=== PATIENT | female | born 1955 | race Caucasian/White ===

== ENCOUNTER 2019-03-24 02:07 | Inpatient (IN) | payer MEDICAID ==
[~2019-03-24] VITALS: Ht 162.6 cm; Wt 47.8 kg
[2019-03-25 12:59] VITALS: BP 116/76
== END 2019-03-25 17:41 | disposition home or self-care (01) | DRG 393 ==
LOC: ED 03:57 → EDIP 04:00 → 4EST 05:31
PROVIDERS: ADMIT Family Medicine; ATTEND Family Medicine
PROC: 0W3P8ZZ Control Bleeding in Gastrointestinal Tract, Via Natural or Artificial Opening Endoscopic (ICD-10-PCS; principal; 2019-03-24)
PROC: 0DBK8ZZ Excision of Ascending Colon, Via Natural or Artificial Opening Endoscopic (ICD-10-PCS; 2019-03-24)
PROC: 0DBN8ZZ Excision of Sigmoid Colon, Via Natural or Artificial Opening Endoscopic (ICD-10-PCS; 2019-03-24)
PROC: 30233N1 Transfusion of Nonautologous Red Blood Cells into Peripheral Vein, Percutaneous Approach (ICD-10-PCS; 2019-03-24)
PROC: 0DJ08ZZ Inspection of Upper Intestinal Tract, Via Natural or Artificial Opening Endoscopic (ICD-10-PCS; 2019-03-24)
DX: K63.5 Polyp of colon (principal); K57.31 Diverticulosis of large intestine without perforation or abscess with bleeding; K63.3 Ulcer of intestine; D62 Acute posthemorrhagic anemia; D53.9 Nutritional anemia, unspecified; E87.6 Hypokalemia; F10.20 Alcohol dependence, uncomplicated; Z71.41 Alcohol abuse counseling and surveillance of alcoholic; Y90.9 Presence of alcohol in blood, level not specified; F12.10 Cannabis abuse, uncomplicated; Z71.51 Drug abuse counseling and surveillance of drug abuser; F17.200 Nicotine dependence, unspecified, uncomplicated; F51.04 Psychophysiologic insomnia; J44.9 Chronic obstructive pulmonary disease, unspecified; F32.9 Major depressive disorder, single episode, unspecified; R73.9 Hyperglycemia, unspecified
CPT/HCPCS: 36415; 96365; 96375; 99291; J7042; 36430; 80053; 80307; 83036; 83540; 83550; 83690; 83735; 84484; 85014; 85018; 85025; 85610; 86850; 86900; 86923; 88305; 93005; 99152; 99153; G0378; J2250; J3010; J3411; J3475; J3480; A4648; C9113; J1200; J7030; P9016

== ENCOUNTER 2020-02-16 10:12 | Inpatient (IN) | payer MEDICARE, MEDICAID ==
[~2020-02-16] VITALS: Ht 157.5 cm; Wt 52.2 kg
[~2020-02-16 10:12] MED LIST: ACET500T76 PO; ACID1TAB7 PO; ALBU18HF INH; TRAZ-175 PO
--- NOTE | 2020-02-16 11:12 | NUR ---
pt to room from lobby.
--- NOTE | 2020-02-16 11:30 | NUR ---
LATE ENTRY FOR 1130: BRITTANIE RILEY AT BEDSIDE FOR INITIAL ASSESSMENT, PT PRESENTS TO ED WITH C/O 10/10 GENERALIZED ABD PAIN ONSET THIS AM, NOW RADIATING TO BACK AND RIGHT SHOULDER. POC US COMPLETED AT BEDSIDE BY BRITTANIE RILEY TO ASSESS AORTA AND ABDOMEN. PT IS A&O, ANXIOUS. RESPS EVEN AND UNLABORED. EKG COMPLETED BY EDT, REVIEWED BY BRITTANIE. ALL MONITORS IN PLACE . PIV PLACED TO LEFT AC. CALL LIGHT IN REACH.
[2020-02-16] MEDS ORDERED: ONDANSETRON 2MG/ML, 2ML ONE ×2 (11:55→16:38)
[2020-02-16] MEDS ORDERED: HYDROmorphone 1 MG/ML, 1ML INJ ONE ×3 (11:55→20:25)
[2020-02-16] MEDS ORDERED: SODIUM CHLORIDE 0.9% 1,000ML IVBOLUS ONE ×2 (12:00→12:30)
[2020-02-16] MEDS ORDERED: ONDANSETRON 2MG/ML, 2ML IVPush ONE (12:00)
[2020-02-16] MEDS ORDERED: SODIUM CHLORIDE FLUSH 10ML SYR IVF ONE (12:00)
[2020-02-16] MEDS: HYDROmorphone 2 MG/ML, 1ML IVPush PRN ×4 (12:03→23:52)
[2020-02-16 12:09] LABS: INTERNATIONAL NORMALIZED RATIO 1.08 (0.93-1.1); MEAN CORPUSCULAR HEMOGLOBIN 26.9 pg (27.0-34.8); MEAN CORPUSCULAR HGB CONC 32.7 g/dL (32.4-35.8); MEAN PLATELET VOLUME 6.9 fL (7.4-10.4); PLATELET COUNT 532 x10^3/uL (130-400); PROTHROMBIN TIME 11.5 Seconds (9.6-11.5); RED BLOOD COUNT 4.55 x10^6/uL (3.82-5.3); RED CELL DISTRIBUTION WIDTH 23.1 % (9.6-15.2)
--- NOTE | 2020-02-16 12:10 | NUR ---
PT INITIALLY REFUSED XRAY, STATES PAIN INTOLERABLE AND SHE WILL NOT MOVE FOR IMAGING. PT MEDICATED PER EMAR, EDMD NOTIFIED PT REPORTS INCREASING ABD PAIN AND RT SHOULDER PAIN PRIOR TO DILAUDID. MD NOTIFIED PT REFUSING IMAGING, MD ASKED THAT XRAY BE REATTEMPTED. RADIOLOGY PAGED TO COLLECT PT.
[2020-02-16 12:13] LABS: ALANINE AMINOTRANSFERASE 19 U/L (12-78); ALBUMIN 1.5 g/dL (3.4-5.0); ANION GAP 10 mmol/L (5-15); CALCIUM 7.7 mg/dL (8.5-10.1); CHLORIDE 104 mmol/L (98-107); CREATININE 0.57 mg/dL (0.55-1.02)
[2020-02-16 12:17] LABS: ALKALINE PHOSPHATASE 259 U/L (45-117); BILIRUBIN,TOTAL 0.7 mg/dL (0.2-1.0); TOTAL PROTEIN 6.4 g/dL (6.4-8.2); TROPONIN I < 0.015 ng/mL (0.000-0.045)
[2020-02-16 12:30] LABS: MD YES
[2020-02-16 12:33] LABS: MICROSCOPIC INDICATED
--- NOTE | 2020-02-16 12:33 | NUR ---
Walked into room to meet patient, pt reporting this pain is unbareable and i cannot tolerate it. Pt reports "If i was feeling better I would be giving you hell!" Pt reports pain is everywhere and cannot point to one place. Denies gastric hx but records indicate hx of gi bleed. Pt is not hotn or pale. Pt resting in room and two doses of diludid given.
[2020-02-16 12:35] LABS: BASOS#(MANUAL) 0.07 x10^3/uL (0-0.1); BASOS% (MANUAL) 1 % (0-1); LYMPH#(MANUAL) 0.98 x10^3/uL (1-3.4); LYMPHS% (MANUAL) 14 % (22-44); MONOS#(MANUAL) 0.28 x10^3/uL (0.3-2.7); MONOS% (MANUAL) 4 % (2-9)
[2020-02-16 12:37] LABS: BAND#(MANUAL) 1.96 x10^3/uL; BANDS%(MANUAL) 28 % (0-7); SEG#(MANUAL) 3.71 x10^3/uL (1.8-6.8); SEGS% (MANUAL) 53 % (42-75)
[2020-02-16 12:38] LABS: <PLATELET ESTIMATE> INCREASED; <PLT MORPHOLOGY> NORMAL PLT MORPH; ANISOCYTOSIS 1+; HYPOCHROMIA 1+; STOMATOCYTES 1+; TARGET CELLS 1+
[2020-02-16] MEDS ORDERED: OMNIPAQUE 350 MG/ML, 100ML BOTTLE ONE (13:04)
[2020-02-16] MEDS ORDERED: METRONIDAZOLE PMX 500MG/100ML 100 ML IV ONE (13:30)
[2020-02-16] MEDS ORDERED: AMPICILLIN/SULBACTAM 3 GM in SODIUM CHLORIDE 0.9% 100 ML IV ONE (13:30)
--- NOTE | 2020-02-16 14:18 | NUR ---
Pt met sepsis@1400, Informed md BLOOD CULTURES OBTAINED AND PT WAS NOT HOTN EVER. Pt receiving approrpiate abx therapy. Pt at this time not wanting surgery. [place] sheet completed and in chart.
[2020-02-16] MEDS: D5%-0.45NACL+KCL 20MEQ 1,000 ML IV SCH ×2 (14:28→22:03)
[2020-02-16] MEDS: METRONIDAZOLE PMX 500MG/100ML 100 ML IV SCH ×2 (14:30→23:42)
[2020-02-16] MEDS ORDERED: hydrALAzine 20 MG/ML, 1ML IVPush PRN (14:30)
[2020-02-16] MEDS: ENOXAPARIN 40 MG/0.4 ML SQ SCH (14:30)
[2020-02-16] MEDS ORDERED: BACLOFEN 10 MG TABLET PO PRN (14:30)
[2020-02-16] MEDS ORDERED: GUAIFENESIN/DM 200-20MG, 10ML UDC PO PRN (14:30)
[2020-02-16] MEDS ORDERED: LABETALOL 5MG/ML, 20ML IVPush PRN (14:30)
[2020-02-16] MEDS ORDERED: TRAZODONE 50MG TABLET PO PRN (14:30)
[2020-02-16] MEDS ORDERED: ONDANSETRON ODT 4 MG PO PRN (14:30)
[2020-02-16] MEDS ORDERED: MELATONIN 5 MG TABLET PO PRN (14:30)
[2020-02-16] MEDS ORDERED: ACETAMINOPHEN 325 MG TABLET PO PRN ×2 (14:30→18:00)
[2020-02-16] MEDS ORDERED: BUTALB/APAP/CAFFEINE 50MG/325MG/40MG PO PRN ×2 (14:30)
[2020-02-16] MEDS ORDERED: ALBUTEROL HFA 90 MCG/SPRAY INH PRN (15:00)
[2020-02-16] MEDS ORDERED: LIDOCAINE 1%, 10ML ONE (15:23)
[2020-02-16] MEDS ORDERED: NICOTINE 21 MG/24 HR PATCH.TD24 ONE (15:38)
[2020-02-16] MEDS ORDERED: CIPROFLOXACIN/PMX 400MG/200ML 200 ML ONE (15:38)
[2020-02-16] MEDS: NICOTINE 21 MG/24 HR PATCH.TD24 TD SCH (15:55)
--- NOTE | 2020-02-16 16:22 | NUR ---
Pt is requesting surgery now, Dr. Guadarrama to bedside and letting her know. Pt reports that she is aggreable and is anxious. Pt ambulated to restroom again and calm after going to restroom.
--- NOTE | 2020-02-16 16:34 | NUR ---
Task RN: Assisted patient to bathroom. Patient ambulatory with a steady gait.
[2020-02-16] MEDS ORDERED: FENTANYL PF 100 MCG/2ML ONE ×2 (16:38→19:29)
[2020-02-16] MEDS ORDERED: CEFAZOLIN 1,000 MG ONE (16:38)
[2020-02-16] MEDS ORDERED: PROPOFOL 10 MG/ML, 20ML ONE (16:38)
[2020-02-16] MEDS ORDERED: DEXAMETHASONE 4 MG/ML, 1ML ONE (16:38)
[2020-02-16] MEDS ORDERED: SUCCINYLCHOLINE 20 MG/ML, 10ML ONE (16:38)
[2020-02-16] MEDS ORDERED: GLYCOPYRROLATE 0.2MG/1ML, 5ML ONE (16:38)
[2020-02-16] MEDS ORDERED: NEOSTIGMINE 1 MG/ML, 10ML ONE (16:38)
[2020-02-16] MEDS ORDERED: MIDAZOLAM 1 MG/ML, 2ML ONE (16:38)
[2020-02-16] MEDS ORDERED: ROCURONIUM 10MG/ML,5ML ONE (16:38)
[2020-02-16] MEDS ORDERED: PHENYLEPHRINE 10 MG/ML ONE (17:08)
[2020-02-16] MEDS ORDERED: SUGAMMADEX 200 MG/2 ML IVPush ONE (17:08)
[2020-02-16] MEDS ORDERED: PROMETHAZINE 25 MG/ML, 1ML IVPush PRN (18:00)
[2020-02-16] MEDS ORDERED: FENTANYL PF 100 MCG/2ML IV PRN (18:00)
[2020-02-16] MEDS ORDERED: MEPERIDINE/PF 25MG/0.5ML IVPush PRN (18:00)
[2020-02-16] MEDS ORDERED: HYDROmorphone 1 MG/ML, 1ML INJ IVPush PRN (18:00)
[2020-02-16] MEDS: TRAZODONE 100MG TABLET PO SCH (21:00)
[2020-02-16 21:10] VITALS: BP 96/69
[2020-02-16] MEDS ORDERED: METRONIDAZOLE PMX 500MG/100ML 100 ML ONE (22:01)
[2020-02-17 02:00] VITALS: BP 96/60
[2020-02-17] MEDS: D5%-0.45NACL+KCL 20MEQ 1,000 ML IV SCH ×2 (03:43→14:22)
[2020-02-17] MEDS: CIPROFLOXACIN/PMX 400MG/200ML 200 ML IV SCH ×2 (03:43→15:44)
[2020-02-17 05:10] LABS: ALBUMIN 0.9 g/dL (3.4-5.0); ANION GAP 4 mmol/L (5-15); CALCIUM 7.2 mg/dL (8.5-10.1); CHLORIDE 111 mmol/L (98-107); CREATININE 0.56 mg/dL (0.55-1.02)
[2020-02-17 05:14] LABS: ALANINE AMINOTRANSFERASE 12 U/L (12-78); ALKALINE PHOSPHATASE 136 U/L (45-117); BILIRUBIN,TOTAL 0.3 mg/dL (0.2-1.0); TOTAL PROTEIN 4.1 g/dL (6.4-8.2)
[2020-02-17 05:25] LABS: MEAN CORPUSCULAR HEMOGLOBIN 27.1 pg (27.0-34.8); MEAN CORPUSCULAR HGB CONC 31.7 g/dL (32.4-35.8); MEAN PLATELET VOLUME 6.8 fL (7.4-10.4); PLATELET COUNT 382 x10^3/uL (130-400); RED BLOOD COUNT 3.36 x10^6/uL (3.82-5.3); RED CELL DISTRIBUTION WIDTH 23.1 % (9.6-15.2)
[2020-02-17 06:16] LABS: MD YES
[2020-02-17 06:18] LABS: ANISOCYTOSIS 1+; BAND#(MANUAL) 6.32 x10^3/uL; BANDS%(MANUAL) 40 % (0-7); LYMPH#(MANUAL) 1.11 x10^3/uL (1-3.4); LYMPHS% (MANUAL) 7 % (22-44); METAMYELOCYTES# (MANUAL) 0.79 x10^3/uL (0-0); METAMYELOCYTES% (MANUAL) 5 % (0-1); MONOS#(MANUAL) 0.47 x10^3/uL (0.3-2.7); MONOS% (MANUAL) 3 % (2-9); SEG#(MANUAL) 7.11 x10^3/uL (1.8-6.8); SEGS% (MANUAL) 45 % (42-75)
[2020-02-17 06:19] LABS: <PLATELET ESTIMATE> ADEQUATE; <PLT MORPHOLOGY> NORMAL PLT MORPH; HYPOCHROMIA 1+; TARGET CELLS 1+
[2020-02-17 06:26] VITALS: BP 91/60
[2020-02-17] MEDS: SENNA/DOCUSATE TABLET PO SCH (09:00)
[2020-02-17 09:01] VITALS: BP 98/67
[2020-02-17] MEDS: HYDROmorphone 2 MG/ML, 1ML IVPush PRN ×3 (09:10→20:28)
[2020-02-17] MEDS: METRONIDAZOLE PMX 500MG/100ML 100 ML IV SCH ×2 (09:10→17:02)
[2020-02-17] MEDS: ENOXAPARIN 40 MG/0.4 ML SQ SCH (14:22)
[2020-02-17] MEDS: NICOTINE 21 MG/24 HR PATCH.TD24 TD SCH (14:23)
[2020-02-17] MEDS ORDERED: LORazepam 2 MG/ML, 1ML IV PRN ×3 (15:00)
[2020-02-17 16:06] VITALS: BP 100/60
[2020-02-17 20:19] VITALS: BP 112/75
[2020-02-17] MEDS: TRAZODONE 100MG TABLET PO SCH (20:20)
[2020-02-18 00:14] VITALS: BP 97/63
[2020-02-18] MEDS: METRONIDAZOLE PMX 500MG/100ML 100 ML IV SCH ×4 (00:45→23:47)
[2020-02-18] MEDS: D5%-0.45NACL+KCL 20MEQ 1,000 ML IV SCH ×2 (01:27→16:14)
[2020-02-18] MEDS: CIPROFLOXACIN/PMX 400MG/200ML 200 ML IV SCH (03:55)
[2020-02-18 06:09] LABS: MEAN CORPUSCULAR HEMOGLOBIN 26.3 pg (27.0-34.8); MEAN CORPUSCULAR HGB CONC 30.9 g/dL (32.4-35.8); MEAN PLATELET VOLUME 6.9 fL (7.4-10.4); PLATELET COUNT 357 x10^3/uL (130-400); RED BLOOD COUNT 3.08 x10^6/uL (3.82-5.3); RED CELL DISTRIBUTION WIDTH 24.1 % (9.6-15.2)
[2020-02-18 06:14] LABS: ALBUMIN 0.9 g/dL (3.4-5.0); ANION GAP 6 mmol/L (5-15); CALCIUM 7.4 mg/dL (8.5-10.1); CHLORIDE 105 mmol/L (98-107); CREATININE 0.41 mg/dL (0.55-1.02)
[2020-02-18 06:37] LABS: MD YES
[2020-02-18 06:38] LABS: BAND#(MANUAL) 5.64 x10^3/uL; BANDS%(MANUAL) 27 % (0-7); LYMPH#(MANUAL) 1.05 x10^3/uL (1-3.4); LYMPHS% (MANUAL) 5 % (22-44); METAMYELOCYTES# (MANUAL) 0.21 x10^3/uL (0-0); METAMYELOCYTES% (MANUAL) 1 % (0-1); MONOS#(MANUAL) 0.63 x10^3/uL (0.3-2.7); MONOS% (MANUAL) 3 % (2-9); SEG#(MANUAL) 13.38 x10^3/uL (1.8-6.8); SEGS% (MANUAL) 64 % (42-75)
[2020-02-18 06:40] LABS: <PLATELET ESTIMATE> ADEQUATE; <PLT MORPHOLOGY> NORMAL PLT MORPH
[2020-02-18 06:41] LABS: ANISOCYTOSIS 1+; HYPOCHROMIA 1+
[2020-02-18 07:21] VITALS: BP 115/76
[2020-02-18] MEDS ORDERED: POTASSIUM PHOSPHATE 44 MEQ in SODIUM CHLORIDE 0.9% 500 ML IV ONE (07:45)
[2020-02-18] MEDS: SENNA/DOCUSATE TABLET PO SCH (09:00)
[2020-02-18] MEDS: HYDROmorphone 2 MG/ML, 1ML IVPush PRN ×2 (09:50→17:23)
[2020-02-18 14:53] VITALS: BP 110/74
[2020-02-18] MEDS: ENOXAPARIN 40 MG/0.4 ML SQ SCH (16:13)
[2020-02-18] MEDS: NICOTINE 21 MG/24 HR PATCH.TD24 TD SCH (16:14)
[2020-02-18] MEDS: CEFTRIAXONE PMX 1GM/50ML 50 ML IV SCH (17:23)
[2020-02-18 19:42] VITALS: BP 105/68
[2020-02-18] MEDS: TRAZODONE 100MG TABLET PO SCH (21:00)
[2020-02-18] MEDS: LORazepam 2 MG/ML, 1ML IV PRN (23:02)
[2020-02-19 02:28] VITALS: BP 114/78
[2020-02-19] MEDS: D5%-0.45NACL+KCL 20MEQ 1,000 ML IV SCH ×2 (04:52→23:39)
[2020-02-19] MEDS: CEFTRIAXONE PMX 1GM/50ML 50 ML IV SCH ×2 (04:52→17:24)
[2020-02-19 06:17] LABS: MEAN CORPUSCULAR HEMOGLOBIN 26.8 pg (27.0-34.8); MEAN CORPUSCULAR HGB CONC 31.8 g/dL (32.4-35.8); PLATELET COUNT 337 x10^3/uL (130-400); RED BLOOD COUNT 3.46 x10^6/uL (3.82-5.3); RED CELL DISTRIBUTION WIDTH 23.7 % (9.6-15.2)
[2020-02-19 06:21] LABS: ALBUMIN 1.1 g/dL (3.4-5.0); ANION GAP 5 mmol/L (5-15); CALCIUM 7.4 mg/dL (8.5-10.1); CHLORIDE 106 mmol/L (98-107); CREATININE 0.39 mg/dL (0.55-1.02)
[2020-02-19 06:43] LABS: MD YES
[2020-02-19 06:45] LABS: BAND#(MANUAL) 0.39 x10^3/uL; BANDS%(MANUAL) 2 % (0-7); LYMPH#(MANUAL) 1.93 x10^3/uL (1-3.4); LYMPHS% (MANUAL) 10 % (22-44); MONOS#(MANUAL) 0.77 x10^3/uL (0.3-2.7); MONOS% (MANUAL) 4 % (2-9); MYELOCYTES# (MANUAL) 0.39 x10^3/uL (0-0); MYELOCYTES% (MANUAL) 2 % (0-0); SEG#(MANUAL) 15.83 x10^3/uL (1.8-6.8); SEGS% (MANUAL) 82 % (42-75)
[2020-02-19 06:46] LABS: <PLATELET ESTIMATE> ADEQUATE; <PLT MORPHOLOGY> NORMAL PLT MORPH; ANISOCYTOSIS 1+; HYPOCHROMIA 1+
[2020-02-19 07:26] VITALS: BP 119/79
[2020-02-19] MEDS: METRONIDAZOLE PMX 500MG/100ML 100 ML IV SCH ×3 (08:18→23:39)
[2020-02-19] MEDS: HYDROmorphone 2 MG/ML, 1ML IVPush PRN ×2 (08:19→17:23)
[2020-02-19] MEDS: SENNA/DOCUSATE TABLET PO SCH (08:19)
[2020-02-19] MEDS ORDERED: POTASSIUM PHOSPHATE 44 MEQ in SODIUM CHLORIDE 0.9% 500 ML IV ONE (08:30)
[2020-02-19] MEDS: LORazepam 2 MG/ML, 1ML IV PRN ×2 (13:25→15:34)
[2020-02-19] MEDS: ENOXAPARIN 40 MG/0.4 ML SQ SCH (15:34)
[2020-02-19] MEDS: NICOTINE 21 MG/24 HR PATCH.TD24 TD SCH (15:34)
[2020-02-19 15:43] VITALS: BP 109/76
[2020-02-19 19:04] VITALS: BP 103/70
[2020-02-19] MEDS: TRAZODONE 100MG TABLET PO SCH (20:12)
[2020-02-20] MEDS: LORazepam 2 MG/ML, 1ML IV PRN (01:16)
[2020-02-20 01:37] VITALS: BP 105/71
[2020-02-20] MEDS: HYDROmorphone 2 MG/ML, 1ML IVPush PRN ×4 (03:21→23:56)
[2020-02-20] MEDS: CEFTRIAXONE PMX 1GM/50ML 50 ML IV SCH ×2 (05:22→16:34)
[2020-02-20 06:33] LABS: MEAN CORPUSCULAR HEMOGLOBIN 26.5 pg (27.0-34.8); MEAN CORPUSCULAR HGB CONC 31.7 g/dL (32.4-35.8); MEAN PLATELET VOLUME 6.7 fL (7.4-10.4); PLATELET COUNT 326 x10^3/uL (130-400); RED BLOOD COUNT 3.55 x10^6/uL (3.82-5.3)
[2020-02-20 06:45] LABS: ALBUMIN 0.9 g/dL (3.4-5.0); ANION GAP 5 mmol/L (5-15); CALCIUM 7.2 mg/dL (8.5-10.1); CHLORIDE 108 mmol/L (98-107)
[2020-02-20 07:02] LABS: MD YES
[2020-02-20 07:04] LABS: BAND#(MANUAL) 0.59 x10^3/uL; BANDS%(MANUAL) 4 % (0-7); LYMPH#(MANUAL) 1.78 x10^3/uL (1-3.4); LYMPHS% (MANUAL) 12 % (22-44); MONOS#(MANUAL) 0.15 x10^3/uL (0.3-2.7); MONOS% (MANUAL) 1 % (2-9); MYELOCYTES# (MANUAL) 0.15 x10^3/uL (0-0); MYELOCYTES% (MANUAL) 1 % (0-0); SEG#(MANUAL) 12.14 x10^3/uL (1.8-6.8); SEGS% (MANUAL) 82 % (42-75)
[2020-02-20 07:05] LABS: ANISOCYTOSIS 1+; HYPOCHROMIA 1+
[2020-02-20 07:06] LABS: <PLATELET ESTIMATE> ADEQUATE; <PLT MORPHOLOGY> NORMAL PLT MORPH
[2020-02-20 07:24] VITALS: BP 101/69
[2020-02-20] MEDS: SENNA/DOCUSATE TABLET PO SCH (09:00)
[2020-02-20] MEDS: METRONIDAZOLE PMX 500MG/100ML 100 ML IV SCH ×3 (09:45→23:54)
[2020-02-20] MEDS: D5%-0.45NACL+KCL 20MEQ 1,000 ML IV SCH ×2 (12:32→23:54)
[2020-02-20 13:11] VITALS: BP 110/69
[2020-02-20 14:01] VITALS: BP 111/77
[2020-02-20] MEDS: ENOXAPARIN 40 MG/0.4 ML SQ SCH (15:01)
[2020-02-20] MEDS: NICOTINE 21 MG/24 HR PATCH.TD24 TD SCH (15:04)
[2020-02-20 20:51] VITALS: BP 107/68
[2020-02-20] MEDS: TRAZODONE 100MG TABLET PO SCH (21:00)
[2020-02-21] MEDS: CEFTRIAXONE PMX 1GM/50ML 50 ML IV SCH ×2 (04:38→17:00)
[2020-02-21] MEDS: HYDROmorphone 2 MG/ML, 1ML IVPush PRN ×4 (04:39→22:30)
[2020-02-21 04:41] VITALS: BP 102/69
[2020-02-21 06:07] LABS: MEAN CORPUSCULAR HGB CONC 32.5 g/dL (32.4-35.8); PLATELET COUNT 344 x10^3/uL (130-400); RED CELL DISTRIBUTION WIDTH 23.8 % (9.6-15.2)
[2020-02-21 06:14] LABS: ALBUMIN 0.9 g/dL (3.4-5.0); ANION GAP 5 mmol/L (5-15); CALCIUM 7.1 mg/dL (8.5-10.1); CHLORIDE 106 mmol/L (98-107)
[2020-02-21 06:15] LABS: CREATININE 0.35 mg/dL (0.55-1.02)
[2020-02-21 06:43] LABS: MD YES
[2020-02-21 06:48] LABS: BAND#(MANUAL) 0.31 x10^3/uL; BANDS%(MANUAL) 2 % (0-7); LYMPH#(MANUAL) 1.69 x10^3/uL (1-3.4); LYMPHS% (MANUAL) 11 % (22-44); METAMYELOCYTES# (MANUAL) 0.15 x10^3/uL (0-0); METAMYELOCYTES% (MANUAL) 1 % (0-1); MONOS#(MANUAL) 0.77 x10^3/uL (0.3-2.7); MONOS% (MANUAL) 5 % (2-9); MYELOCYTES# (MANUAL) 0.46 x10^3/uL (0-0); MYELOCYTES% (MANUAL) 3 % (0-0); SEG#(MANUAL) 12.01 x10^3/uL (1.8-6.8); SEGS% (MANUAL) 78 % (42-75)
[2020-02-21 06:49] LABS: ANISOCYTOSIS 1+
[2020-02-21 06:50] LABS: <PLATELET ESTIMATE> ADEQUATE; <PLT MORPHOLOGY> NORMAL PLT MORPH; POLYCHROMASIA 1+
[2020-02-21 07:31] VITALS: BP 92/61
[2020-02-21] MEDS ORDERED: POTASSIUM PHOSPHATE 22 MEQ in SODIUM CHLORIDE 0.9% 500 ML IV ONE (08:30)
[2020-02-21] MEDS: METRONIDAZOLE PMX 500MG/100ML 100 ML IV SCH ×2 (08:39→16:56)
[2020-02-21] MEDS: SENNA/DOCUSATE TABLET PO SCH (08:39)
[2020-02-21] MEDS: ENOXAPARIN 40 MG/0.4 ML SQ SCH (13:13)
[2020-02-21] MEDS: NICOTINE 21 MG/24 HR PATCH.TD24 TD SCH (13:14)
[2020-02-21] MEDS: GABAPENTIN 300 MG CAPSULE PO PRN (13:14)
[2020-02-21] MEDS: D5%-0.45NACL+KCL 20MEQ 1,000 ML IV SCH (13:14)
[2020-02-21] MEDS ORDERED: PVN PER PHARMACY MC SCH (14:00)
[2020-02-21 14:12] VITALS: BP 113/75
[2020-02-21] MEDS: FILTER, DISP 1.2 MICRON FOR TPN/PVN IV PRN (16:50)
[2020-02-21] MEDS ORDERED: AMINO ACID 10% IV SCH (17:00)
[2020-02-21] MEDS ORDERED: FAT EMUL IV SCH (17:00)
[2020-02-21] MEDS ORDERED: DEXTROSE 70% IV SCH (17:00)
[2020-02-21] MEDS ORDERED: [UNRECOGNIZED DRUG - OTHER] IV SCH (17:00)
[2020-02-21] MEDS ORDERED: SMOF TPN IV SCH (17:00)
[2020-02-21 19:54] VITALS: BP 116/78
[2020-02-21] MEDS: TRAZODONE 100MG TABLET PO SCH (20:34)
[2020-02-22] MEDS ORDERED: DEXTROSE 50%, 50ML SYRINGE IVPush PRN
[2020-02-22 00:59] VITALS: BP 112/73
[2020-02-22] MEDS: METRONIDAZOLE PMX 500MG/100ML 100 ML IV SCH ×3 (00:59→18:03)
[2020-02-22] MEDS ORDERED: DEXTROSE 10% 500 ML IV PRN (02:00)
[2020-02-22] MEDS: HYDROmorphone 2 MG/ML, 1ML IVPush PRN ×2 (03:09→07:40)
[2020-02-22] MEDS: INSULIN REGULAR LOW DOSE Q6H X 48HRS SQ-INSULIN SCH ×4 (03:10→22:00)
[2020-02-22] MEDS: CEFTRIAXONE PMX 1GM/50ML 50 ML IV SCH ×2 (04:30→16:43)
[2020-02-22 05:51] LABS: MEAN CORPUSCULAR HEMOGLOBIN 26.7 pg (27.0-34.8); MEAN CORPUSCULAR HGB CONC 31.7 g/dL (32.4-35.8); MEAN PLATELET VOLUME 7.2 fL (7.4-10.4); PLATELET COUNT 374 x10^3/uL (130-400); RED BLOOD COUNT 3.14 x10^6/uL (3.82-5.3); RED CELL DISTRIBUTION WIDTH 24.1 % (9.6-15.2)
[2020-02-22 05:55] LABS: ANION GAP 4 mmol/L (5-15); CALCIUM 7.6 mg/dL (8.5-10.1); CHLORIDE 111 mmol/L (98-107)
[2020-02-22 06:03] LABS: ALANINE AMINOTRANSFERASE 10 U/L (12-78); ALKALINE PHOSPHATASE 109 U/L (45-117); BILIRUBIN,TOTAL 0.2 mg/dL (0.2-1.0); CREATININE 0.35 mg/dL (0.55-1.02); PREALBUMIN 3.8 mg/dL (20.0-40.0); TOTAL PROTEIN 4.7 g/dL (6.4-8.2)
[2020-02-22 06:14] LABS: MD YES
[2020-02-22 06:16] LABS: <PLATELET ESTIMATE> ADEQUATE; <PLT MORPHOLOGY> NORMAL PLT MORPH; ANISOCYTOSIS 1+; LYMPH#(MANUAL) 0.84 x10^3/uL (1-3.4); LYMPHS% (MANUAL) 6 % (22-44); METAMYELOCYTES# (MANUAL) 0.14 x10^3/uL (0-0); METAMYELOCYTES% (MANUAL) 1 % (0-1); MONOS% (MANUAL) 5 % (2-9); POLYCHROMASIA 1+; SEG#(MANUAL) 12.32 x10^3/uL (1.8-6.8); SEGS% (MANUAL) 88 % (42-75)
[2020-02-22 07:08] VITALS: BP 125/84
[2020-02-22] MEDS: SENNA/DOCUSATE TABLET PO SCH (09:45)
[2020-02-22] MEDS: HYDROcodone/APAP 5/325 TABLET PO PRN ×3 (11:25→20:41)
[2020-02-22 13:23] VITALS: BP 105/72
[2020-02-22] MEDS: ENOXAPARIN 40 MG/0.4 ML SQ SCH (16:08)
[2020-02-22] MEDS: NICOTINE 21 MG/24 HR PATCH.TD24 TD SCH (16:09)
[2020-02-22] MEDS: FILTER, DISP 1.2 MICRON FOR TPN/PVN IV PRN (16:43)
[2020-02-22] MEDS ORDERED: AMINO ACID 10% IV SCH (17:00)
[2020-02-22] MEDS ORDERED: SMOF TPN IV SCH (17:00)
[2020-02-22] MEDS ORDERED: FAT EMUL IV SCH (17:00)
[2020-02-22] MEDS ORDERED: DEXTROSE 70% IV SCH (17:00)
[2020-02-22] MEDS ORDERED: [UNRECOGNIZED DRUG - OTHER] IV SCH (17:00)
[2020-02-22 18:45] VITALS: BP 103/62
[2020-02-22] MEDS: TRAZODONE 100MG TABLET PO SCH (21:00)
[2020-02-23 01:06] VITALS: BP 114/71
[2020-02-23] MEDS: METRONIDAZOLE PMX 500MG/100ML 100 ML IV SCH ×3 (02:24→18:14)
[2020-02-23] MEDS: HYDROcodone/APAP 5/325 TABLET PO PRN ×3 (02:24→17:34)
[2020-02-23] MEDS: INSULIN REGULAR LOW DOSE Q6H X 48HRS SQ-INSULIN SCH ×4 (02:26→21:00)
[2020-02-23] MEDS: CEFTRIAXONE PMX 1GM/50ML 50 ML IV SCH ×2 (05:14→17:27)
[2020-02-23 07:56] VITALS: BP 132/85
[2020-02-23 08:54] LABS: MEAN CORPUSCULAR HEMOGLOBIN 26.4 pg (27.0-34.8); MEAN CORPUSCULAR HGB CONC 31.3 g/dL (32.4-35.8); MEAN PLATELET VOLUME 7.1 fL (7.4-10.4); PLATELET COUNT 504 x10^3/uL (130-400); RED BLOOD COUNT 3.63 x10^6/uL (3.82-5.3)
[2020-02-23] MEDS: GABAPENTIN 300 MG CAPSULE PO PRN ×2 (08:57→17:34)
[2020-02-23] MEDS: SENNA/DOCUSATE TABLET PO SCH (08:58)
[2020-02-23 09:00] LABS: ANION GAP 7 mmol/L (5-15); CALCIUM 8.3 mg/dL (8.5-10.1); CHLORIDE 108 mmol/L (98-107); CREATININE 0.33 mg/dL (0.55-1.02)
[2020-02-23 09:28] LABS: BASOPHILS # (AUTO) 0.09 x10^3/uL (0-0.1); BASOPHILS % (AUTO) 1 % (0-1); EOSINOPHILS # (AUTO) 0.03 x10^3/uL (0-0.4); EOSINOPHILS % (AUTO) 0 % (1-7); LYMPHOCYTES # (AUTO) 0.98 x10^3/uL (1-3.4); LYMPHOCYTES % (AUTO) 5 % (22-44); MD SCAN; MONOCYTES # (AUTO) 0.52 x10^3/uL (0.2-0.8); MONOCYTES % (AUTO) 3 % (2-9); NEUTROPHILS # (AUTO) 16.92 x10^3/uL (1.8-6.8); NEUTROPHILS % (AUTO) 91 % (42-75)
[2020-02-23] MEDS: HYDROmorphone 2 MG/ML, 1ML IVPush PRN ×2 (12:42→21:18)
[2020-02-23 13:48] VITALS: BP 114/75
[2020-02-23] MEDS: NICOTINE 21 MG/24 HR PATCH.TD24 TD SCH (15:05)
[2020-02-23] MEDS: ENOXAPARIN 40 MG/0.4 ML SQ SCH (15:05)
[2020-02-23] MEDS ORDERED: DEXTROSE 70% IV SCH (17:00)
[2020-02-23] MEDS ORDERED: AMINO ACID 10% IV SCH (17:00)
[2020-02-23] MEDS ORDERED: SMOF TPN IV SCH (17:00)
[2020-02-23] MEDS ORDERED: FAT EMUL IV SCH (17:00)
[2020-02-23] MEDS ORDERED: [UNRECOGNIZED DRUG - OTHER] IV SCH (17:00)
[2020-02-23] MEDS: FILTER, DISP 1.2 MICRON FOR TPN/PVN IV PRN (17:19)
[2020-02-23 18:26] VITALS: BP 106/68
[2020-02-23] MEDS: TRAZODONE 100MG TABLET PO SCH (21:00)
[2020-02-23] MEDS: VENLAFAXINE XR 37.5MG CAP.ER.24H PO SCH (21:17)
[2020-02-24 00:39] VITALS: BP 131/87
[2020-02-24] MEDS: HYDROmorphone 2 MG/ML, 1ML IVPush PRN ×5 (01:01→22:38)
[2020-02-24] MEDS: METRONIDAZOLE PMX 500MG/100ML 100 ML IV SCH ×3 (02:14→17:26)
[2020-02-24 04:41] LABS: ALBUMIN 1.3 g/dL (3.4-5.0); ANION GAP 4 mmol/L (5-15); CHLORIDE 102 mmol/L (98-107); MEAN CORPUSCULAR HEMOGLOBIN 26.3 pg (27.0-34.8); MEAN PLATELET VOLUME 7.2 fL (7.4-10.4); PLATELET COUNT 584 x10^3/uL (130-400); RED BLOOD COUNT 3.54 x10^6/uL (3.82-5.3); RED CELL DISTRIBUTION WIDTH 24.9 % (9.6-15.2)
[2020-02-24 04:46] LABS: ALANINE AMINOTRANSFERASE 11 U/L (12-78); ALKALINE PHOSPHATASE 113 U/L (45-117); BILIRUBIN,TOTAL 0.5 mg/dL (0.2-1.0); CREATININE 0.36 mg/dL (0.55-1.02); TOTAL PROTEIN 5.7 g/dL (6.4-8.2)
[2020-02-24] MEDS: CEFTRIAXONE PMX 1GM/50ML 50 ML IV SCH ×2 (05:05→16:43)
[2020-02-24] MEDS: ONDANSETRON 2MG/ML, 2ML IVPush PRN ×2 (05:11→15:22)
[2020-02-24 05:14] LABS: BASOPHILS % (AUTO) 0 % (0-1); EOSINOPHILS # (AUTO) 0.03 x10^3/uL (0-0.4); EOSINOPHILS % (AUTO) 0 % (1-7); LYMPHOCYTES # (AUTO) 1.25 x10^3/uL (1-3.4); LYMPHOCYTES % (AUTO) 5 % (22-44); MD SCAN; MONOCYTES # (AUTO) 0.77 x10^3/uL (0.2-0.8); MONOCYTES % (AUTO) 3 % (2-9); NEUTROPHILS # (AUTO) 20.98 x10^3/uL (1.8-6.8); NEUTROPHILS % (AUTO) 91 % (42-75)
[2020-02-24] MEDS: INSULIN REGULAR LOW DOSE QDAY SQ-INSULIN SCH (06:00)
[2020-02-24 07:52] VITALS: BP 127/84
[2020-02-24] MEDS: SENNA/DOCUSATE TABLET PO SCH (08:40)
[2020-02-24] MEDS ORDERED: OMNIPAQUE 350 MG/ML, 100ML BOTTLE ONE (13:01)
[2020-02-24] MEDS: ENOXAPARIN 40 MG/0.4 ML SQ SCH (13:38)
[2020-02-24 13:56] VITALS: BP 126/82
[2020-02-24] MEDS: NICOTINE 14MG/24 HR PATCH.TD24 TD SCH (14:41)
[2020-02-24] MEDS: FILTER, DISP 1.2 MICRON FOR TPN/PVN IV PRN (16:59)
[2020-02-24] MEDS ORDERED: DEXTROSE 70% IV SCH (17:00)
[2020-02-24] MEDS ORDERED: AMINO ACID 10% IV SCH (17:00)
[2020-02-24] MEDS ORDERED: FAT EMUL IV SCH (17:00)
[2020-02-24] MEDS ORDERED: [UNRECOGNIZED DRUG - OTHER] IV SCH (17:00)
[2020-02-24] MEDS ORDERED: SMOF TPN IV SCH (17:00)
[2020-02-24 18:48] VITALS: BP 125/75
[2020-02-24] MEDS: TRAZODONE 100MG TABLET PO SCH (21:00)
[2020-02-24] MEDS: VENLAFAXINE XR 37.5MG CAP.ER.24H PO SCH (21:38)
[2020-02-24] MEDS ORDERED: GABAPENTIN 100 MG CAPSULE ONE (22:32)
[2020-02-24] MEDS: GABAPENTIN 300 MG CAPSULE PO PRN (22:36)
[2020-02-25 01:01] VITALS: BP 130/83
[2020-02-25] MEDS: METRONIDAZOLE PMX 500MG/100ML 100 ML IV SCH ×2 (02:18→10:21)
[2020-02-25] MEDS: HYDROmorphone 2 MG/ML, 1ML IVPush PRN ×3 (02:18→11:41)
[2020-02-25] MEDS: CEFTRIAXONE PMX 1GM/50ML 50 ML IV SCH (05:23)
[2020-02-25 05:38] LABS: MEAN CORPUSCULAR HGB CONC 31.9 g/dL (32.4-35.8); MEAN PLATELET VOLUME 7.7 fL (7.4-10.4); PLATELET COUNT 546 x10^3/uL (130-400); RED BLOOD COUNT 3.44 x10^6/uL (3.82-5.3); RED CELL DISTRIBUTION WIDTH 24.1 % (9.6-15.2)
[2020-02-25] MEDS: INSULIN REGULAR LOW DOSE QDAY SQ-INSULIN SCH (06:02)
[2020-02-25 06:06] LABS: ALANINE AMINOTRANSFERASE 9 U/L (12-78); ALBUMIN 1.4 g/dL (3.4-5.0); ALKALINE PHOSPHATASE 114 U/L (45-117); BILIRUBIN,TOTAL 0.2 mg/dL (0.2-1.0); CREATININE 0.31 mg/dL (0.55-1.02); TOTAL PROTEIN 5.7 g/dL (6.4-8.2)
[2020-02-25 06:15] LABS: MD YES
[2020-02-25 06:16] LABS: ANISOCYTOSIS 1+; BAND#(MANUAL) 0.45 x10^3/uL; BANDS%(MANUAL) 2 % (0-7); LYMPH#(MANUAL) 0.67 x10^3/uL (1-3.4); LYMPHS% (MANUAL) 3 % (22-44); MONOS#(MANUAL) 0.67 x10^3/uL (0.3-2.7); MONOS% (MANUAL) 3 % (2-9); SEG#(MANUAL) 20.52 x10^3/uL (1.8-6.8); SEGS% (MANUAL) 92 % (42-75)
[2020-02-25 06:17] LABS: <PLATELET ESTIMATE> INCREASED; <PLT MORPHOLOGY> NORMAL PLT MORPH; HYPOCHROMIA 1+; POLYCHROMASIA 1+
[2020-02-25 07:33] VITALS: BP 130/84
[2020-02-25 09:02] LABS: ANION GAP 6 mmol/L (5-15); CHLORIDE 103 mmol/L (98-107)
[2020-02-25] MEDS: SENNA/DOCUSATE TABLET PO SCH (10:21)
[2020-02-25] MEDS: FLUCONAZOLE 400 MG/200 ML 200 ML IV SCH (13:22)
[2020-02-25 14:08] VITALS: BP 118/77
[2020-02-25] MEDS: ENOXAPARIN 40 MG/0.4 ML SQ SCH (15:29)
[2020-02-25] MEDS: HYDROcodone/APAP 5/325 TABLET PO PRN ×2 (15:30→23:14)
[2020-02-25] MEDS: NICOTINE 14MG/24 HR PATCH.TD24 TD SCH (15:31)
[2020-02-25] MEDS: PIPERACILLIN/TAZO/PMX 3.375GM 50 ML IV SCH ×3 (16:10→23:11)
[2020-02-25] MEDS ORDERED: SMOF TPN IV SCH (17:00)
[2020-02-25] MEDS ORDERED: FAT EMUL IV SCH (17:00)
[2020-02-25] MEDS ORDERED: AMINO ACID 10% IV SCH (17:00)
[2020-02-25] MEDS ORDERED: [UNRECOGNIZED DRUG - OTHER] IV SCH (17:00)
[2020-02-25] MEDS ORDERED: DEXTROSE 70% IV SCH (17:00)
[2020-02-25 18:55] VITALS: BP 146/84
[2020-02-25] MEDS: TRAZODONE 100MG TABLET PO SCH (21:00)
[2020-02-25] MEDS: VENLAFAXINE XR 37.5MG CAP.ER.24H PO SCH (23:12)
[2020-02-25] MEDS: GABAPENTIN 300 MG CAPSULE PO PRN (23:13)
[2020-02-26 00:35] VITALS: BP 116/72
[2020-02-26] MEDS: PIPERACILLIN/TAZO/PMX 3.375GM 50 ML IV SCH ×4 (05:05→23:15)
[2020-02-26] MEDS: HYDROcodone/APAP 5/325 TABLET PO PRN ×3 (05:06→23:17)
[2020-02-26] MEDS: INSULIN REGULAR LOW DOSE QDAY SQ-INSULIN SCH (06:00)
[2020-02-26 07:10] LABS: ANION GAP 6 mmol/L (5-15); CALCIUM 8.3 mg/dL (8.5-10.1); CHLORIDE 110 mmol/L (98-107); CREATININE 0.25 mg/dL (0.55-1.02)
[2020-02-26 07:15] LABS: MEAN CORPUSCULAR HEMOGLOBIN 27.3 pg (27.0-34.8); MEAN CORPUSCULAR HGB CONC 32.2 g/dL (32.4-35.8); MEAN PLATELET VOLUME 7.9 fL (7.4-10.4); PLATELET COUNT 502 x10^3/uL (130-400); RED BLOOD COUNT 2.79 x10^6/uL (3.82-5.3); RED CELL DISTRIBUTION WIDTH 24.5 % (9.6-15.2)
[2020-02-26 07:31] LABS: BASOPHILS # (AUTO) 0.03 x10^3/uL (0-0.1); BASOPHILS % (AUTO) 0 % (0-1); EOSINOPHILS # (AUTO) 0.21 x10^3/uL (0-0.4); EOSINOPHILS % (AUTO) 1 % (1-7); LYMPHOCYTES # (AUTO) 1.34 x10^3/uL (1-3.4); LYMPHOCYTES % (AUTO) 7 % (22-44); MD SCAN; MONOCYTES # (AUTO) 0.98 x10^3/uL (0.2-0.8); MONOCYTES % (AUTO) 5 % (2-9); NEUTROPHILS # (AUTO) 17.16 x10^3/uL (1.8-6.8); NEUTROPHILS % (AUTO) 87 % (42-75)
[2020-02-26 07:39] VITALS: BP 114/75
[2020-02-26] MEDS: SENNA/DOCUSATE TABLET PO SCH (08:38)
[2020-02-26] MEDS: FLUCONAZOLE 400 MG/200 ML 200 ML IV SCH (11:41)
[2020-02-26 12:58] VITALS: BP 133/78
[2020-02-26 13:02] VITALS: BP 128/73
[2020-02-26] MEDS: ENOXAPARIN 40 MG/0.4 ML SQ SCH (14:44)
[2020-02-26] MEDS: NICOTINE 14MG/24 HR PATCH.TD24 TD SCH (14:44)
[2020-02-26] MEDS: FILTER, DISP 1.2 MICRON FOR TPN/PVN IV PRN (16:56)
[2020-02-26] MEDS ORDERED: AMINO ACID 10% 750 ML, DEXTROSE 70% 350 ML, FAT EMUL/SMOF TPN 175 ML, STERILE WATER 1,0... IV SCH (17:00)
[2020-02-26 19:35] VITALS: BP 118/68
[2020-02-26] MEDS: TRAZODONE 100MG TABLET PO SCH (21:00)
[2020-02-26] MEDS: VENLAFAXINE XR 37.5MG CAP.ER.24H PO SCH (23:16)
[2020-02-26] MEDS: GABAPENTIN 300 MG CAPSULE PO PRN (23:16)
[2020-02-27 00:38] VITALS: BP 127/79
[2020-02-27 05:36] LABS: MEAN CORPUSCULAR HEMOGLOBIN 27.5 pg (27.0-34.8); MEAN CORPUSCULAR HGB CONC 31.8 g/dL (32.4-35.8); MEAN PLATELET VOLUME 7.4 fL (7.4-10.4); PLATELET COUNT 578 x10^3/uL (130-400); RED BLOOD COUNT 2.92 x10^6/uL (3.82-5.3); RED CELL DISTRIBUTION WIDTH 24.7 % (9.6-15.2)
[2020-02-27] MEDS: HYDROcodone/APAP 5/325 TABLET PO PRN ×4 (05:36→23:02)
[2020-02-27] MEDS: PIPERACILLIN/TAZO/PMX 3.375GM 50 ML IV SCH ×4 (05:36→23:04)
[2020-02-27 05:40] LABS: ANION GAP 4 mmol/L (5-15); CALCIUM 8.5 mg/dL (8.5-10.1); CHLORIDE 109 mmol/L (98-107); CREATININE 0.37 mg/dL (0.55-1.02)
[2020-02-27] MEDS: INSULIN REGULAR LOW DOSE QDAY SQ-INSULIN SCH (06:00)
[2020-02-27 06:41] LABS: MD YES
[2020-02-27 06:43] LABS: ANISOCYTOSIS 1+; EOS#(MANUAL) 0.21 x10^3/uL (0.0-0.4); EOS% (MANUAL) 1 % (1-7); LYMPH#(MANUAL) 2.77 x10^3/uL (1-3.4); LYMPHS% (MANUAL) 13 % (22-44); MONOS#(MANUAL) 1.28 x10^3/uL (0.3-2.7); MONOS% (MANUAL) 6 % (2-9); SEG#(MANUAL) 17.04 x10^3/uL (1.8-6.8); SEGS% (MANUAL) 80 % (42-75)
[2020-02-27 06:44] LABS: <PLATELET ESTIMATE> INCREASED; <PLT MORPHOLOGY> NORMAL PLT MORPH; HYPOCHROMIA 1+; POLYCHROMASIA 1+; TARGET CELLS 1+
[2020-02-27 06:45] LABS: MICROCYTOSIS 1+
[2020-02-27 07:20] VITALS: BP 130/79
[2020-02-27] MEDS: SENNA/DOCUSATE TABLET PO SCH (09:18)
[2020-02-27] MEDS: FLUCONAZOLE 400 MG/200 ML 200 ML IV SCH (11:35)
[2020-02-27 13:19] VITALS: BP 147/86
[2020-02-27] MEDS: ALBUTEROL HFA 90 MCG/SPRAY INH SCH ×2 (14:06→21:11)
[2020-02-27] MEDS: ENOXAPARIN 40 MG/0.4 ML SQ SCH (15:05)
[2020-02-27] MEDS: NICOTINE 14MG/24 HR PATCH.TD24 TD SCH (15:05)
[2020-02-27] MEDS: FILTER, DISP 1.2 MICRON FOR TPN/PVN IV PRN (16:29)
[2020-02-27] MEDS ORDERED: AMINO ACID 10% 750 ML, DEXTROSE 70% 350 ML, FAT EMUL/SMOF TPN 175 ML, STERILE WATER 1,0... IV SCH (17:00)
[2020-02-27] MEDS: TRAZODONE 100MG TABLET PO SCH (21:00)
[2020-02-27] MEDS: VENLAFAXINE XR 37.5MG CAP.ER.24H PO SCH (21:11)
[2020-02-27 21:59] VITALS: BP 149/78
[2020-02-27 22:05] VITALS: BP 149/79
[2020-02-28 01:05] VITALS: BP 159/91
[2020-02-28] MEDS: PIPERACILLIN/TAZO/PMX 3.375GM 50 ML IV SCH ×3 (05:03→17:44)
[2020-02-28] MEDS: HYDROcodone/APAP 5/325 TABLET PO PRN ×4 (05:03→22:09)
[2020-02-28 05:43] LABS: CHLORIDE 107 mmol/L (98-107)
[2020-02-28 05:54] LABS: MEAN CORPUSCULAR HGB CONC 31.1 g/dL (32.4-35.8); MEAN PLATELET VOLUME 7.3 fL (7.4-10.4); PLATELET COUNT 633 x10^3/uL (130-400); RED BLOOD COUNT 3.05 x10^6/uL (3.82-5.3)
[2020-02-28 05:56] LABS: ANION GAP 5 mmol/L (5-15); CALCIUM 8.9 mg/dL (8.5-10.1); CREATININE 0.33 mg/dL (0.55-1.02); PREALBUMIN 14.5 mg/dL (20.0-40.0); TRIGLYCERIDES 469 mg/dL (50-200)
[2020-02-28] MEDS: INSULIN REGULAR LOW DOSE QDAY SQ-INSULIN SCH (06:00)
[2020-02-28 06:10] LABS: BASOPHILS # (AUTO) 0.01 x10^3/uL (0-0.1); BASOPHILS % (AUTO) 0 % (0-1); EOSINOPHILS % (AUTO) 0 % (1-7); LYMPHOCYTES # (AUTO) 1.68 x10^3/uL (1-3.4); LYMPHOCYTES % (AUTO) 9 % (22-44); MD SCAN; MONOCYTES % (AUTO) 6 % (2-9); NEUTROPHILS # (AUTO) 15.48 x10^3/uL (1.8-6.8); NEUTROPHILS % (AUTO) 85 % (42-75)
[2020-02-28 07:12] VITALS: BP 156/96
[2020-02-28] MEDS: SENNA/DOCUSATE TABLET PO SCH (09:00)
[2020-02-28] MEDS: GABAPENTIN 300 MG CAPSULE PO PRN ×2 (09:30→17:54)
[2020-02-28] MEDS: ALBUTEROL HFA 90 MCG/SPRAY INH SCH ×2 (09:32→22:13)
[2020-02-28] MEDS: FLUCONAZOLE 400 MG/200 ML 200 ML IV SCH (09:34)
[2020-02-28 13:24] VITALS: BP 131/81
[2020-02-28] MEDS: ENOXAPARIN 40 MG/0.4 ML SQ SCH (14:44)
[2020-02-28] MEDS: NICOTINE 14MG/24 HR PATCH.TD24 TD SCH (14:44)
[2020-02-28] MEDS ORDERED: SMOF TPN IV SCH (17:00)
[2020-02-28] MEDS ORDERED: [UNRECOGNIZED DRUG - OTHER] IV SCH (17:00)
[2020-02-28] MEDS ORDERED: FAT EMUL IV SCH (17:00)
[2020-02-28] MEDS ORDERED: DEXTROSE 70% IV SCH (17:00)
[2020-02-28] MEDS ORDERED: AMINO ACID 10% IV SCH (17:00)
[2020-02-28 19:28] VITALS: BP 136/81
[2020-02-28] MEDS: VENLAFAXINE XR 37.5MG CAP.ER.24H PO SCH (22:09)
[2020-02-29] MEDS: PIPERACILLIN/TAZO/PMX 3.375GM 50 ML IV SCH ×2 (00:29→06:19)
[2020-02-29 00:39] VITALS: BP 114/71
[2020-02-29] MEDS: HYDROcodone/APAP 5/325 TABLET PO PRN ×3 (05:18→15:16)
[2020-02-29 05:42] LABS: ALBUMIN 1.6 g/dL (3.4-5.0); ANION GAP 8 mmol/L (5-15); CALCIUM 8.5 mg/dL (8.5-10.1); CHLORIDE 102 mmol/L (98-107); MEAN CORPUSCULAR HEMOGLOBIN 27.1 pg (27.0-34.8); MEAN CORPUSCULAR HGB CONC 31.9 g/dL (32.4-35.8); MEAN PLATELET VOLUME 7.7 fL (7.4-10.4); PLATELET COUNT 661 x10^3/uL (130-400); RED BLOOD COUNT 3.18 x10^6/uL (3.82-5.3); RED CELL DISTRIBUTION WIDTH 24.4 % (9.6-15.2)
[2020-02-29 05:45] LABS: ALANINE AMINOTRANSFERASE 11 U/L (12-78); ALKALINE PHOSPHATASE 171 U/L (45-117); BILIRUBIN,TOTAL 0.4 mg/dL (0.2-1.0); CREATININE 0.38 mg/dL (0.55-1.02); TOTAL PROTEIN 6.3 g/dL (6.4-8.2)
[2020-02-29 06:01] LABS: BASOPHILS # (AUTO) 0.01 x10^3/uL (0-0.1); BASOPHILS % (AUTO) 0 % (0-1); EOSINOPHILS # (AUTO) 0.22 x10^3/uL (0-0.4); EOSINOPHILS % (AUTO) 1 % (1-7); LYMPHOCYTES # (AUTO) 2.58 x10^3/uL (1-3.4); LYMPHOCYTES % (AUTO) 15 % (22-44); MD SCAN; MONOCYTES # (AUTO) 1.06 x10^3/uL (0.2-0.8); MONOCYTES % (AUTO) 6 % (2-9); NEUTROPHILS # (AUTO) 13.02 x10^3/uL (1.8-6.8); NEUTROPHILS % (AUTO) 77 % (42-75)
[2020-02-29 08:11] VITALS: BP 136/85
[2020-02-29] MEDS ORDERED: POLYETHYLENE GLYCOL 17 GM PACKET PO SCH (09:00)
[2020-02-29] MEDS ORDERED: ERTAPENEM 1 GM in SODIUM CHLORIDE 0.9% 50 ML IV SCH (09:00)
[2020-02-29] MEDS: ALBUTEROL HFA 90 MCG/SPRAY INH SCH (09:34)
[2020-02-29] MEDS: SENNA/DOCUSATE TABLET PO SCH (09:34)
[2020-02-29] MEDS: GABAPENTIN 300 MG CAPSULE PO PRN ×2 (09:42→15:16)
[2020-02-29] MEDS ORDERED: ERTA1VIA4 IV (10:42)
[2020-02-29] MEDS ORDERED: HYDR-3237 PO (10:42)
[2020-02-29 13:56] VITALS: BP 117/72
[2020-02-29] MEDS: ENOXAPARIN 40 MG/0.4 ML SQ SCH (14:30)
[2020-02-29] MEDS: NICOTINE 14MG/24 HR PATCH.TD24 TD SCH (15:16)
== END 2020-02-29 15:40 | disposition home health service (06) | DRG 853 ==
LOC: ED 13:23 → EDIP 14:01 → 4EST 21:15 → 4NE 02-18 13:14 → DCLOUNGE 02-29 15:25
PROVIDERS: ADMIT Family Medicine; ATTEND Internal Medicine
PROC: 0D1M0Z4 Bypass Descending Colon to Cutaneous, Open Approach (ICD-10-PCS; 2020-02-16)
PROC: 0DTN0ZZ Resection of Sigmoid Colon, Open Approach (ICD-10-PCS; 2020-02-16)
PROC: 0T9B70Z Drainage of Bladder with Drainage Device, Via Natural or Artificial Opening (ICD-10-PCS; 2020-02-16)
PROC: 0W9G0ZZ Drainage of Peritoneal Cavity, Open Approach (ICD-10-PCS; 2020-02-16)
PROC: 0DTJ0ZZ Resection of Appendix, Open Approach (ICD-10-PCS; principal; 2020-02-16 17:00)
PROC: 3E0336Z Introduction of Nutritional Substance into Peripheral Vein, Percutaneous Approach (ICD-10-PCS; 2020-02-26)
PROC: 02HV33Z Insertion of Infusion Device into Superior Vena Cava, Percutaneous Approach (ICD-10-PCS; 2020-02-29)
PROC: B5181ZA Fluoroscopy of Superior Vena Cava using Low Osmolar Contrast, Guidance (ICD-10-PCS; 2020-02-29)
PROC: B548ZZA Ultrasonography of Superior Vena Cava, Guidance (ICD-10-PCS; 2020-02-29)
DX: A41.4 Sepsis due to anaerobes (principal); K65.0 Generalized (acute) peritonitis; E43 Unspecified severe protein-calorie malnutrition; K65.1 Peritoneal abscess; K57.20 Diverticulitis of large intestine with perforation and abscess without bleeding; J98.11 Atelectasis; K56.600 Partial intestinal obstruction, unspecified as to cause; F10.239 Alcohol dependence with withdrawal, unspecified; J90 Pleural effusion, not elsewhere classified; D63.8 Anemia in other chronic diseases classified elsewhere; E83.39 Other disorders of phosphorus metabolism; E86.0 Dehydration; E87.6 Hypokalemia; F17.210 Nicotine dependence, cigarettes, uncomplicated; F32.9 Major depressive disorder, single episode, unspecified; J44.9 Chronic obstructive pulmonary disease, unspecified; N73.9 Female pelvic inflammatory disease, unspecified; G47.00 Insomnia, unspecified; D72.829 Elevated white blood cell count, unspecified; R74.8 Abnormal levels of other serum enzymes; Z93.3 Colostomy status; K37 Unspecified appendicitis; Y90.9 Presence of alcohol in blood, level not specified; D47.3 Essential (hemorrhagic) thrombocythemia
CPT/HCPCS: 36415; 36573; 74022; 74177; 80048; 80053; 80069; 81001; 82962; 83605; 83690; 83735; 84100; 84134; 84145; 84478; 84484; 85014; 85018; 85025; 85610; 85651; 87040; 87070; 87075; 87076; 87077; 87086; 87147; 87205; 88302; 88304; 88307; 93005; 96361; 96374; 99291; G0378; J0295; J0610; J0690; J0696; J0744; J1100; J1170; J1335; J1450; J1644; J1650; J1815; J2250; J2405; J2543; J2704; J2710; J3010; J3411; J3475; J3480; Q9967; C1751; J0330; J1720; J2060; J2370; J3420; J3490; J7030; J7040

== ENCOUNTER → 2020-03-10 | Outpatient (CLI) | payer MEDICARE, MEDICAID ==
[~2020-03-10] MED LIST changes: +ERTA1VIA4 IV; +HYDR-3237 PO; +OMNIPAQUE 350 MG/ML, 100ML BOTTLE ONE
== END | disposition home or self-care (01) ==
LOC: RAD 14:32
PROVIDERS: ATTEND Internal Medicine Infectious Disease
DX: N73.5 Female pelvic peritonitis, unspecified (principal); K56.600 Partial intestinal obstruction, unspecified as to cause; J90 Pleural effusion, not elsewhere classified
CPT/HCPCS: 74177; Q9967

== ENCOUNTER → 2020-03-28 | Outpatient (CLI) | payer MEDICARE, MEDICAID | END | disposition home or self-care (01) | LOC: RAD 12:33 | PROVIDERS: ATTEND Internal Medicine Infectious Disease | DX: K63.9 Disease of intestine, unspecified (principal); R14.0 Abdominal distension (gaseous) | CPT/HCPCS: 74177; Q9967 ==

== ENCOUNTER → 2020-04-15 | Outpatient (CLI) | payer MEDICARE, MEDICAID ==
[~2020-04-15] MED LIST changes: +ERTAPENEM 1 GM ONE
== END | disposition home or self-care (01) ==
LOC: RAD 13:29
PROVIDERS: ATTEND Internal Medicine Infectious Disease
DX: K57.21 Diverticulitis of large intestine with perforation and abscess with bleeding (principal); D25.9 Leiomyoma of uterus, unspecified
CPT/HCPCS: 74177; Q9967

== ENCOUNTER 2020-04-29 09:00 | Outpatient (CLI) | payer MEDICARE, MEDICAID ==
[~2020-04-29 09:00] MED LIST changes: -ERTAPENEM 1 GM ONE; -OMNIPAQUE 350 MG/ML, 100ML BOTTLE ONE
== END 2020-04-29 23:59 | disposition home or self-care (01) ==
LOC: WOUND 09:00
PROVIDERS: ATTEND Family Medicine
DX: T81.31XA Disruption of external operation (surgical) wound, not elsewhere classified, initial encounter (principal); K57.13 Diverticulitis of small intestine without perforation or abscess with bleeding; J44.9 Chronic obstructive pulmonary disease, unspecified; D25.9 Leiomyoma of uterus, unspecified; F32.9 Major depressive disorder, single episode, unspecified; F17.210 Nicotine dependence, cigarettes, uncomplicated; Y83.8 Other surgical procedures as the cause of abnormal reaction of the patient, or of later complication, without mention of misadventure at the time of the procedure; Y92.238 Other place in hospital as the place of occurrence of the external cause
CPT/HCPCS: 97597; G0463

== ENCOUNTER 2020-05-06 10:48 | Outpatient (CLI) | payer MEDICARE, MEDICAID | END 2020-05-06 23:59 | disposition home or self-care (01) | LOC: WOUND 10:48 | PROVIDERS: ATTEND Family Medicine | DX: T81.31XD Disruption of external operation (surgical) wound, not elsewhere classified, subsequent encounter (principal); K57.13 Diverticulitis of small intestine without perforation or abscess with bleeding; J44.9 Chronic obstructive pulmonary disease, unspecified; D25.9 Leiomyoma of uterus, unspecified; F32.9 Major depressive disorder, single episode, unspecified; F17.210 Nicotine dependence, cigarettes, uncomplicated; Y83.8 Other surgical procedures as the cause of abnormal reaction of the patient, or of later complication, without mention of misadventure at the time of the procedure | CPT/HCPCS: 97597 ==

== ENCOUNTER → 2020-05-13 | Outpatient (CLI) | payer MEDICARE, MEDICAID | END | disposition home or self-care (01) | LOC: WOUND 09:53 | PROVIDERS: ATTEND Family Medicine | DX: T81.31XD Disruption of external operation (surgical) wound, not elsewhere classified, subsequent encounter (principal); K57.13 Diverticulitis of small intestine without perforation or abscess with bleeding; J44.9 Chronic obstructive pulmonary disease, unspecified; D25.9 Leiomyoma of uterus, unspecified; F32.9 Major depressive disorder, single episode, unspecified; F17.210 Nicotine dependence, cigarettes, uncomplicated; Y83.8 Other surgical procedures as the cause of abnormal reaction of the patient, or of later complication, without mention of misadventure at the time of the procedure | CPT/HCPCS: 97597 ==

== ENCOUNTER → 2020-05-17 | Outpatient (CLI) | payer MEDICARE, MEDICAID ==
[~2020-05-17] MED LIST changes: +OMNIPAQUE 350 MG/ML, 100ML BOTTLE ONE
== END | disposition home or self-care (01) ==
LOC: CFH 10:05
PROVIDERS: ATTEND Internal Medicine Infectious Disease
DX: K57.30 Diverticulosis of large intestine without perforation or abscess without bleeding (principal); N85.8 Other specified noninflammatory disorders of uterus; R93.89 Abnormal findings on diagnostic imaging of other specified body structures; K65.1 Peritoneal abscess; J98.4 Other disorders of lung
CPT/HCPCS: 74177; Q9967

== ENCOUNTER → 2020-05-20 | Outpatient (CLI) | payer MEDICARE, MEDICAID ==
[~2020-05-20] MED LIST changes: -OMNIPAQUE 350 MG/ML, 100ML BOTTLE ONE
== END | disposition home or self-care (01) ==
LOC: WOUND 10:32
PROVIDERS: ATTEND Family Medicine
DX: T81.31XD Disruption of external operation (surgical) wound, not elsewhere classified, subsequent encounter (principal); K57.13 Diverticulitis of small intestine without perforation or abscess with bleeding; J44.9 Chronic obstructive pulmonary disease, unspecified; F32.9 Major depressive disorder, single episode, unspecified; F17.210 Nicotine dependence, cigarettes, uncomplicated; Z93.3 Colostomy status; Y83.8 Other surgical procedures as the cause of abnormal reaction of the patient, or of later complication, without mention of misadventure at the time of the procedure
CPT/HCPCS: 97597

== ENCOUNTER 2020-05-27 09:57 | Outpatient (CLI) | payer MEDICARE, MEDICAID | END 2020-05-27 23:59 | disposition home or self-care (01) | LOC: WOUND 09:57 | PROVIDERS: ATTEND Family Medicine | DX: T81.31XD Disruption of external operation (surgical) wound, not elsewhere classified, subsequent encounter (principal); K57.13 Diverticulitis of small intestine without perforation or abscess with bleeding; J44.9 Chronic obstructive pulmonary disease, unspecified; F32.9 Major depressive disorder, single episode, unspecified; F17.210 Nicotine dependence, cigarettes, uncomplicated; Z93.3 Colostomy status; Y83.8 Other surgical procedures as the cause of abnormal reaction of the patient, or of later complication, without mention of misadventure at the time of the procedure | CPT/HCPCS: 97597 ==

== ENCOUNTER → 2020-06-03 | Outpatient (CLI) | payer MEDICARE, MEDICAID | END | disposition home or self-care (01) | LOC: WOUND 09:55 | PROVIDERS: ATTEND Family Medicine | DX: T81.31XD Disruption of external operation (surgical) wound, not elsewhere classified, subsequent encounter (principal); K57.13 Diverticulitis of small intestine without perforation or abscess with bleeding; J44.9 Chronic obstructive pulmonary disease, unspecified; F32.9 Major depressive disorder, single episode, unspecified; F17.210 Nicotine dependence, cigarettes, uncomplicated; Z93.3 Colostomy status; Y83.8 Other surgical procedures as the cause of abnormal reaction of the patient, or of later complication, without mention of misadventure at the time of the procedure | CPT/HCPCS: 97597 ==

== ENCOUNTER → 2020-06-10 | Outpatient (CLI) | payer MEDICARE, MEDICAID | END | disposition home or self-care (01) | LOC: WOUND 10:26 | PROVIDERS: ATTEND Family Medicine | DX: T81.31XD Disruption of external operation (surgical) wound, not elsewhere classified, subsequent encounter (principal); K57.13 Diverticulitis of small intestine without perforation or abscess with bleeding; J44.9 Chronic obstructive pulmonary disease, unspecified; F32.9 Major depressive disorder, single episode, unspecified; F17.210 Nicotine dependence, cigarettes, uncomplicated; Z93.3 Colostomy status; Y83.8 Other surgical procedures as the cause of abnormal reaction of the patient, or of later complication, without mention of misadventure at the time of the procedure | CPT/HCPCS: G0463 ==

== ENCOUNTER → 2020-06-24 | Outpatient (CLI) | payer MEDICARE, MEDICAID | END | disposition home or self-care (01) | LOC: WOUND 10:04 | PROVIDERS: ATTEND Internal Medicine | DX: T81.31XD Disruption of external operation (surgical) wound, not elsewhere classified, subsequent encounter (principal); K57.13 Diverticulitis of small intestine without perforation or abscess with bleeding; J44.9 Chronic obstructive pulmonary disease, unspecified; F32.9 Major depressive disorder, single episode, unspecified; F17.210 Nicotine dependence, cigarettes, uncomplicated; Z93.3 Colostomy status; Y83.8 Other surgical procedures as the cause of abnormal reaction of the patient, or of later complication, without mention of misadventure at the time of the procedure | CPT/HCPCS: 97597 ==

== ENCOUNTER → 2020-06-29 | Outpatient (CLI) | payer MEDICARE, MEDICAID ==
[~2020-06-29] MED LIST changes: +OMNIPAQUE 350 MG/ML, 100ML BOTTLE ONE
== END | disposition home or self-care (01) ==
LOC: CFH 13:41
PROVIDERS: ATTEND Internal Medicine Infectious Disease
DX: K57.30 Diverticulosis of large intestine without perforation or abscess without bleeding (principal); D25.9 Leiomyoma of uterus, unspecified; K65.1 Peritoneal abscess; J84.10 Pulmonary fibrosis, unspecified; N85.2 Hypertrophy of uterus
CPT/HCPCS: 74177; Q9967

== ENCOUNTER 2020-07-18 09:55 | Outpatient (CLI) | payer MEDICARE, MEDICAID ==
[~2020-07-18 09:55] MED LIST changes: -OMNIPAQUE 350 MG/ML, 100ML BOTTLE ONE
== END 2020-07-18 23:59 | disposition home or self-care (01) ==
LOC: WOUND 09:55
PROVIDERS: ATTEND Internal Medicine
DX: T81.31XD Disruption of external operation (surgical) wound, not elsewhere classified, subsequent encounter (principal); K57.13 Diverticulitis of small intestine without perforation or abscess with bleeding; J44.9 Chronic obstructive pulmonary disease, unspecified; F32.9 Major depressive disorder, single episode, unspecified; F17.210 Nicotine dependence, cigarettes, uncomplicated; Z93.3 Colostomy status; Y83.8 Other surgical procedures as the cause of abnormal reaction of the patient, or of later complication, without mention of misadventure at the time of the procedure
CPT/HCPCS: 97597

== ENCOUNTER → 2020-08-01 | Outpatient (CLI) | payer MEDICARE, MEDICAID | END | disposition home or self-care (01) | LOC: WOUND 10:05 | PROVIDERS: ATTEND Internal Medicine | DX: T81.31XD Disruption of external operation (surgical) wound, not elsewhere classified, subsequent encounter (principal); K57.13 Diverticulitis of small intestine without perforation or abscess with bleeding; J44.9 Chronic obstructive pulmonary disease, unspecified; F32.9 Major depressive disorder, single episode, unspecified; F17.210 Nicotine dependence, cigarettes, uncomplicated; Z93.3 Colostomy status; Y83.8 Other surgical procedures as the cause of abnormal reaction of the patient, or of later complication, without mention of misadventure at the time of the procedure | CPT/HCPCS: 97597 ==

== ENCOUNTER → 2020-08-18 | Outpatient (CLI) | payer MEDICARE, MEDICAID ==
[~2020-08-18] MED LIST changes: +OMNIPAQUE 350 MG/ML, 100ML BOTTLE ONE
== END | disposition home or self-care (01) ==
LOC: CFH 13:30
PROVIDERS: ATTEND Nurse Practitioner
DX: D25.9 Leiomyoma of uterus, unspecified (principal); N85.2 Hypertrophy of uterus; K65.1 Peritoneal abscess
CPT/HCPCS: 74177; Q9967

== ENCOUNTER → 2020-08-22 | Outpatient (CLI) | payer MEDICARE, MEDICAID ==
[~2020-08-22] MED LIST changes: -OMNIPAQUE 350 MG/ML, 100ML BOTTLE ONE
== END | disposition home or self-care (01) ==
LOC: WOUND 11:10
PROVIDERS: ATTEND Internal Medicine
DX: T81.31XD Disruption of external operation (surgical) wound, not elsewhere classified, subsequent encounter (principal); K57.13 Diverticulitis of small intestine without perforation or abscess with bleeding; J44.9 Chronic obstructive pulmonary disease, unspecified; F32.9 Major depressive disorder, single episode, unspecified; F17.210 Nicotine dependence, cigarettes, uncomplicated; Z93.3 Colostomy status; Y83.8 Other surgical procedures as the cause of abnormal reaction of the patient, or of later complication, without mention of misadventure at the time of the procedure
CPT/HCPCS: G0463

== ENCOUNTER → 2020-10-26 | Outpatient (CLI) | payer MEDICARE, MEDICAID ==
[~2020-10-26] MED LIST changes: +OMNIPAQUE 350 MG/ML, 100ML BOTTLE ONE
== END | disposition home or self-care (01) ==
LOC: CFH 14:08
PROVIDERS: ATTEND Internal Medicine Infectious Disease
DX: K57.30 Diverticulosis of large intestine without perforation or abscess without bleeding (principal); D25.9 Leiomyoma of uterus, unspecified; K65.1 Peritoneal abscess; J84.10 Pulmonary fibrosis, unspecified; J98.4 Other disorders of lung; M51.36 Other intervertebral disc degeneration, lumbar region
CPT/HCPCS: 74177; Q9967

== ENCOUNTER → 2020-11-29 | Outpatient (CLI) | payer MEDICARE, MEDICAID ==
[~2020-11-29] MED LIST changes: -OMNIPAQUE 350 MG/ML, 100ML BOTTLE ONE
[2020-11-29 14:14] LABS: BASOPHILS % (AUTO) 1 % (0-1); EOSINOPHILS % (AUTO) 1 % (1-7); LYMPHOCYTES % (AUTO) 24 % (22-44); MEAN CORPUSCULAR HEMOGLOBIN 30.7 pg (27.0-34.8); MEAN CORPUSCULAR HGB CONC 33.8 g/dL (32.4-35.8); MEAN PLATELET VOLUME 6.5 fL (7.4-10.4); MONOCYTES % (AUTO) 5 % (2-9); NEUTROPHILS % (AUTO) 70 % (42-75); PLATELET COUNT 313 x10^3/uL (130-400); RED BLOOD COUNT 4.38 x10^6/uL (3.82-5.3); RED CELL DISTRIBUTION WIDTH 15.3 % (9.6-15.2)
[2020-11-29 14:15] LABS: MD NO
[2020-11-29 14:17] LABS: HCT (SEDRATE) 39.7 % (34.6-47.8)
[2020-11-29 14:23] LABS: ALANINE AMINOTRANSFERASE 29 U/L (12-78); ANION GAP 7 mmol/L (5-15); C-REACTIVE PROTEIN, QUANT 0.19 mg/dL (0.02-0.49); CALCIUM 8.3 mg/dL (8.5-10.1); CHLORIDE 108 mmol/L (98-107); CREATININE 0.57 mg/dL (0.55-1.02)
[2020-11-29 14:25] LABS: ALKALINE PHOSPHATASE 153 U/L (45-117); BILIRUBIN,TOTAL 0.2 mg/dL (0.2-1.0); TOTAL PROTEIN 6.8 g/dL (6.4-8.2)
== END | disposition home or self-care (01) ==
LOC: LAB 13:53
PROVIDERS: ATTEND Internal Medicine Infectious Disease
DX: K65.1 Peritoneal abscess (principal); K63.1 Perforation of intestine (nontraumatic); R79.82 Elevated C-reactive protein (CRP); R70.0 Elevated erythrocyte sedimentation rate
CPT/HCPCS: 36415; 80053; 85025; 85651; 86140

== ENCOUNTER → 2020-12-26 | Outpatient (CLI) | payer MEDICARE, MEDICAID ==
[2020-12-26 12:34] LABS: ALANINE AMINOTRANSFERASE 21 U/L (12-78); ALBUMIN 3.1 g/dL (3.4-5.0); ANION GAP 8 mmol/L (5-15); C-REACTIVE PROTEIN, QUANT 0.18 mg/dL (0.02-0.49); CALCIUM 8.2 mg/dL (8.5-10.1); CHLORIDE 105 mmol/L (98-107); CREATININE 0.58 mg/dL (0.55-1.02)
[2020-12-26 12:37] LABS: ALKALINE PHOSPHATASE 137 U/L (45-117); BILIRUBIN,TOTAL 0.1 mg/dL (0.2-1.0); TOTAL PROTEIN 6.8 g/dL (6.4-8.2)
[2020-12-26 12:57] LABS: BASOPHILS % (AUTO) 1 % (0-1); EOSINOPHILS % (AUTO) 0 % (1-7); LYMPHOCYTES % (AUTO) 24 % (22-44); MEAN CORPUSCULAR HEMOGLOBIN 31.5 pg (27.0-34.8); MEAN CORPUSCULAR HGB CONC 34.4 g/dL (32.4-35.8); MEAN PLATELET VOLUME 7.1 fL (7.4-10.4); MONOCYTES % (AUTO) 6 % (2-9); NEUTROPHILS % (AUTO) 69 % (42-75); PLATELET COUNT 303 x10^3/uL (130-400); RED BLOOD COUNT 4.21 x10^6/uL (3.82-5.3); RED CELL DISTRIBUTION WIDTH 15.6 % (9.6-15.2)
[2020-12-26 13:04] LABS: HCT (SEDRATE) 39.2 % (34.6-47.8)
[2020-12-26 13:48] LABS: MD NO
== END | disposition home or self-care (01) ==
LOC: LAB 12:03
PROVIDERS: ATTEND Internal Medicine Infectious Disease
DX: K65.1 Peritoneal abscess (principal); K63.1 Perforation of intestine (nontraumatic); R79.82 Elevated C-reactive protein (CRP); R70.0 Elevated erythrocyte sedimentation rate
CPT/HCPCS: 36415; 80053; 85025; 85651; 86140

== ENCOUNTER → 2021-03-03 | Outpatient (CLI) | payer MEDICARE, MEDICAID ==
[~2021-03-03] MED LIST changes: +VENL37.57 PO
== END | disposition home or self-care (01) ==
LOC: STAR 14:10
PROVIDERS: ATTEND Internal Medicine Geriatric Medicine
DX: Z01.818 Encounter for other preprocedural examination (principal); K57.92 Diverticulitis of intestine, part unspecified, without perforation or abscess without bleeding; Z86.010 Personal history of colon polyps
CPT/HCPCS: 93005

== ENCOUNTER 2021-03-07 11:05 | Day surgery (SDC) | payer MEDICARE, MEDICAID ==
[~2021-03-07] VITALS: Ht 157.5 cm; Wt 41.9 kg
[2021-03-07] MEDS ORDERED: CHLORHEXIDINE 15 ML UDC PO ONE (11:30)
[2021-03-07] MEDS ORDERED: LACTATED RINGERS 1,000 ML IV SCH (11:30)
[2021-03-07 11:33] VITALS: BP 151/99
[2021-03-07] MEDS ORDERED: CHLORHEXIDINE 15 ML UDC ONE (11:35)
[2021-03-07] MEDS ORDERED: PROPOFOL 10 MG/ML, 20ML ONE (12:13)
[2021-03-07] MEDS ORDERED: ALBUTEROL SULFATE 2.5 MG/3 ML NPPB PRN (12:30)
[2021-03-07] MEDS ORDERED: LABETALOL 5MG/ML, 20ML IV PRN (12:30)
[2021-03-07] MEDS ORDERED: FENTANYL PF 100 MCG/2ML IV PRN (12:30)
[2021-03-07] MEDS ORDERED: ACETAMINOPHEN 325 MG TABLET PO PRN (12:30)
[2021-03-07] MEDS ORDERED: OXYcodone 5 MG/5 ML ORAL.SOL UDC PO PRN (12:30)
[2021-03-07] MEDS ORDERED: MEPERIDINE/PF 25MG/0.5ML IVPush PRN (12:30)
[2021-03-07] MEDS ORDERED: ONDANSETRON 2MG/ML, 2ML IVPush PRN (12:30)
== END 2021-03-07 14:20 | disposition home or self-care (01) ==
LOC: OUT 11:05
PROVIDERS: ATTEND Internal Medicine Geriatric Medicine
DX: Z12.11 Encounter for screening for malignant neoplasm of colon (principal); D12.4 Benign neoplasm of descending colon; D12.0 Benign neoplasm of cecum; K57.30 Diverticulosis of large intestine without perforation or abscess without bleeding; J44.9 Chronic obstructive pulmonary disease, unspecified; F17.210 Nicotine dependence, cigarettes, uncomplicated; Z86.010 Personal history of colon polyps; Z93.3 Colostomy status
CPT/HCPCS: 44394; 44404; 45330; 88305; J2704; J7120